=== PATIENT | female | born 1975 | race Caucasian/White ===

== ENCOUNTER 2024-08-31 12:27 | Emergency (ER) | payer SELFPAY ==
[2024-08-31 12:42] VITALS: BP 125/87
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
[2024-08-31] MEDS: ZOFRAN ODT (ORALLY DISINTEGRATING) 4 MG PO (14:04)
[2024-08-31] MEDS: TORADOL 30 MG IM (16:14)
[2024-08-31 16:21] VITALS: BP 99/58
== END 2024-08-31 16:23 | disposition home or self-care (01) ==
LOC: EMR 12:27
PROVIDERS: EMERGENCY PHYSICIAN Emergency Medicine; FAMILY PHYSICIAN Internal Medicine
DX: S06.0XAA Concussion with loss of consciousness status unknown, initial encounter (principal); Y08.89XA Assault by other specified means, initial encounter; Y92.219 Unspecified school as the place of occurrence of the external cause; Y99.0 Civilian activity done for income or pay
CPT/HCPCS: 96372; 99284; 70450

== ENCOUNTER 2024-09-16 15:59 | Emergency (ER) | payer OTHER, SELFPAY ==
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
== END 2024-09-16 16:38 | disposition home or self-care (01) ==
LOC: EMR 15:59
PROVIDERS: EMERGENCY PHYSICIAN Emergency Medicine; FAMILY PHYSICIAN Internal Medicine
DX: F07.81 Postconcussional syndrome (principal)
CPT/HCPCS: 99283

== ENCOUNTER 2024-11-09 06:35 | Outpatient (RCR) | payer OTHER, SELFPAY | END 2024-11-09 23:59 | disposition home or self-care (01) | LOC: RPT 06:35 | PROVIDERS: ATTENDING PHYSICIAN Internal Medicine | DX: F07.81 Postconcussional syndrome (principal); Z73.6 Limitation of activities due to disability | CPT/HCPCS: 97112; 97162 ==

== ENCOUNTER 2024-12-12 19:04 | Outpatient (RCR) | payer OTHER, SELFPAY | END 2024-12-12 23:59 | disposition home or self-care (01) | LOC: RPT 19:04 | PROVIDERS: ATTENDING PHYSICIAN Internal Medicine | DX: R42 Dizziness and giddiness (principal); R51.9 Headache, unspecified; M54.2 Cervicalgia; Z73.6 Limitation of activities due to disability; Y04.2XXD Assault by strike against or bumped into by another person, subsequent encounter; F07.81 Postconcussional syndrome; Y93.89 Activity, other specified; Y92.219 Unspecified school as the place of occurrence of the external cause; Y99.0 Civilian activity done for income or pay | CPT/HCPCS: 97010; 97110; 97112; 97140 ==

== ENCOUNTER 2025-01-11 15:13 | Outpatient (RCR) | payer OTHER, SELFPAY | END 2025-01-11 23:59 | disposition home or self-care (01) | LOC: RPT 15:13 | PROVIDERS: ATTENDING PHYSICIAN Internal Medicine | DX: R42 Dizziness and giddiness (principal); F07.81 Postconcussional syndrome; Z73.6 Limitation of activities due to disability; R51.9 Headache, unspecified; Y04.2XXD Assault by strike against or bumped into by another person, subsequent encounter; Y92.219 Unspecified school as the place of occurrence of the external cause; Y99.0 Civilian activity done for income or pay; Y93.89 Activity, other specified; M54.2 Cervicalgia | CPT/HCPCS: 97010; 97110; 97112; 97140 ==

== ENCOUNTER 2025-02-01 09:02 | Outpatient (RCR) | payer OTHER, SELFPAY | END 2025-02-01 23:59 | disposition home or self-care (01) | LOC: RPT 09:02 | PROVIDERS: ATTENDING PHYSICIAN Internal Medicine | DX: R42 Dizziness and giddiness (principal); F07.81 Postconcussional syndrome; Z73.6 Limitation of activities due to disability; R51.9 Headache, unspecified; M54.2 Cervicalgia; Y04.2XXD Assault by strike against or bumped into by another person, subsequent encounter; Y93.89 Activity, other specified; Y92.219 Unspecified school as the place of occurrence of the external cause; Y99.0 Civilian activity done for income or pay | CPT/HCPCS: 97010; 97110; 97112; 97140 ==

== ENCOUNTER 2025-03-06 08:04 | Outpatient (RCR) | payer OTHER, SELFPAY | END 2025-03-06 23:59 | disposition home or self-care (01) | LOC: RPT 08:04 | PROVIDERS: ATTENDING PHYSICIAN Internal Medicine | DX: R42 Dizziness and giddiness (principal); F07.81 Postconcussional syndrome; Z73.6 Limitation of activities due to disability; R51.9 Headache, unspecified; M54.2 Cervicalgia; Y04.2XXD Assault by strike against or bumped into by another person, subsequent encounter; Y93.89 Activity, other specified; Y92.219 Unspecified school as the place of occurrence of the external cause; Y99.0 Civilian activity done for income or pay | CPT/HCPCS: 97010; 97110; 97112; 97140 ==

== ENCOUNTER 2025-04-13 08:20 | Outpatient (RCR) | payer OTHER, SELFPAY | END 2025-04-13 23:59 | disposition home or self-care (01) | LOC: RST 08:20 | PROVIDERS: ATTENDING PHYSICIAN Internal Medicine | DX: R42 Dizziness and giddiness (principal); F07.81 Postconcussional syndrome; Z73.6 Limitation of activities due to disability; R51.9 Headache, unspecified; M54.2 Cervicalgia; R41.841 Cognitive communication deficit; Y04.2XXD Assault by strike against or bumped into by another person, subsequent encounter; Y93.89 Activity, other specified; Y92.219 Unspecified school as the place of occurrence of the external cause; Y99.0 Civilian activity done for income or pay | CPT/HCPCS: 96125; 97010; 97110; 97112; 97129; 97130; 97140 ==

== ENCOUNTER 2025-05-08 06:57 | Outpatient (RCR) | payer OTHER, SELFPAY | END 2025-05-08 23:59 | disposition home or self-care (01) | LOC: RST 06:57 | PROVIDERS: ATTENDING PHYSICIAN Psychiatry & Neurology Pain Medicine; REFERRING PHYSICIAN Internal Medicine | DX: R42 Dizziness and giddiness (principal); F07.81 Postconcussional syndrome; Z73.6 Limitation of activities due to disability; R51.9 Headache, unspecified; M54.2 Cervicalgia; R41.841 Cognitive communication deficit; Y04.2XXD Assault by strike against or bumped into by another person, subsequent encounter; Y93.89 Activity, other specified; Y92.219 Unspecified school as the place of occurrence of the external cause; Y99.0 Civilian activity done for income or pay | CPT/HCPCS: 97010; 97110; 97112; 97129; 97130; 97167 ==

== ENCOUNTER 2025-06-01 16:13 | Outpatient (RCR) | payer OTHER, SELFPAY | END 2025-06-01 23:59 | disposition home or self-care (01) | LOC: RST 16:13 | PROVIDERS: ATTENDING PHYSICIAN Psychiatry & Neurology Pain Medicine; REFERRING PHYSICIAN Internal Medicine | DX: R42 Dizziness and giddiness (principal); F07.81 Postconcussional syndrome; Z73.6 Limitation of activities due to disability; R51.9 Headache, unspecified; M54.2 Cervicalgia; R41.841 Cognitive communication deficit; Y04.2XXD Assault by strike against or bumped into by another person, subsequent encounter; Y93.89 Activity, other specified; Y92.219 Unspecified school as the place of occurrence of the external cause; Y99.0 Civilian activity done for income or pay | CPT/HCPCS: 97129; 97130 ==

== ENCOUNTER 2025-07-13 16:43 | Outpatient (RCR) | payer OTHER, SELFPAY | END 2025-07-13 23:59 | disposition home or self-care (01) | LOC: RST 16:43 | PROVIDERS: ATTENDING PHYSICIAN Psychiatry & Neurology Pain Medicine; REFERRING PHYSICIAN Internal Medicine | DX: R42 Dizziness and giddiness (principal); F07.81 Postconcussional syndrome; Z73.6 Limitation of activities due to disability; R51.9 Headache, unspecified; M54.2 Cervicalgia; R41.841 Cognitive communication deficit; Y04.2XXD Assault by strike against or bumped into by another person, subsequent encounter; Y93.89 Activity, other specified; Y92.219 Unspecified school as the place of occurrence of the external cause; Y99.0 Civilian activity done for income or pay | CPT/HCPCS: 97129; 97130; 97530; 97537 ==

== ENCOUNTER 2025-08-02 17:10 | Outpatient (RCR) | payer OTHER, SELFPAY | END 2025-08-02 23:59 | disposition home or self-care (01) | LOC: RST 17:10 | PROVIDERS: ATTENDING PHYSICIAN Psychiatry & Neurology Pain Medicine; REFERRING PHYSICIAN Internal Medicine | DX: R42 Dizziness and giddiness (principal); F07.81 Postconcussional syndrome; Z73.6 Limitation of activities due to disability; R51.9 Headache, unspecified; M54.2 Cervicalgia; R41.841 Cognitive communication deficit; Y04.2XXD Assault by strike against or bumped into by another person, subsequent encounter; Y93.89 Activity, other specified; Y92.219 Unspecified school as the place of occurrence of the external cause; Y99.0 Civilian activity done for income or pay | CPT/HCPCS: 97112; 97129; 97130 ==

== ENCOUNTER 2025-08-31 15:55 | Outpatient (RCR) | payer BC, SELFPAY | END 2025-08-31 23:59 | disposition home or self-care (01) | LOC: RST 15:55 | PROVIDERS: ATTENDING PHYSICIAN Psychiatry & Neurology Pain Medicine; REFERRING PHYSICIAN Internal Medicine | DX: R41.841 Cognitive communication deficit (principal); R42 Dizziness and giddiness; Z73.6 Limitation of activities due to disability; R51.9 Headache, unspecified; F07.81 Postconcussional syndrome; M54.2 Cervicalgia; Y04.2XXD Assault by strike against or bumped into by another person, subsequent encounter; Y93.89 Activity, other specified; Y92.219 Unspecified school as the place of occurrence of the external cause; Y99.0 Civilian activity done for income or pay | CPT/HCPCS: 97110; 97112; 97129; 97130 ==